=== PATIENT | male | born 2000 | race Caucasian/White ===

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

== ENCOUNTER 2020-11-28 19:32 | Emergency (ER) | payer SELFPAY ==
[~2020-11-28] VITALS: Wt 120.2 kg
[2020-11-28] MEDS ORDERED: PREDNISONE20 M1 PO (21:54)
[2020-11-28] MEDS ORDERED: PROVENTIL HFA6.7 GM INH (21:54)
== END 2020-11-28 22:31 | disposition home or self-care (01) ==
LOC: ED 19:32
DX: J40 Bronchitis, not specified as acute or chronic (principal); Z88.8 Allergy status to other drugs, medicaments and biological substances; Z79.899 Other long term (current) drug therapy